=== PATIENT | male | born 1975 | race African-American/Black ===

== ENCOUNTER 2024-01-28 04:12 | Day surgery (SDC) | payer BC ==
[2024-01-26 16:41] VITALS: BMI 27.2
[2024-01-28] MEDS ORDERED: LIDOCAINE HCL 1%, 10 MG/ML (20ML VIAL) ONE (07:27)
[2024-01-28] MEDS ORDERED: BUPIVACAINE HCL/PF 0.5% (5MG/ML) 10 ML VIAL ONE (07:27)
[2024-01-28] MEDS ORDERED: ROCURONIUM BROMIDE 50 MG/5 ML SYRINGE ONE (08:06)
[2024-01-28] MEDS ORDERED: MIDAZOLAM HCL 2 MG/2 ML SINGLE DOSE VIAL ONE (08:06)
[2024-01-28] MEDS ORDERED: PROPOFOL 40 ML ONE (08:06)
[2024-01-28] MEDS ORDERED: LIDOCAINE HCL/PF 2% SDV 5ML VIAL ONE (08:07)
[2024-01-28] MEDS ORDERED: DEXAMETHASONE SOD PHOSPHATE 4 MG/1 ML VIAL ONE (08:29)
[2024-01-28] MEDS: ceFAZolin SODIUM 1 GM VIAL IVPB ONE (08:37)
[2024-01-28] MEDS ORDERED: LIDOCAINE 1%/EPI 1:100000 (20 ML MULTI DOSE VIAL) ONE (08:39)
[2024-01-28] MEDS: LIDOCAINE 1%/EPI 1:100000 (20 ML MULTI DOSE VIAL) IJ ONE ×2 (08:46)
[2024-01-28] MEDS ORDERED: SEVOFLURANE 250 ML BTL ONE (09:16)
[2024-01-28] MEDS ORDERED: ONDANSETRON 4 MG/2 ML VIAL IVPUSH PRN (09:41)
[2024-01-28] MEDS ORDERED: LACTATED RINGERS SOLUTION 1,000 ML IV SCH (09:45)
[2024-01-28 11:47] VITALS: RESP 16
[2024-01-28 11:49] VITALS: TEMP 97.8
[2024-01-28] MEDS ORDERED: oxyCODONE HCL 5 MG TABLET ONE (13:11)
[2024-01-28] MEDS: oxyCODONE HCL 5 MG TABLET PO PRN (13:15)
[2024-01-28 14:09] VITALS: BP 141/70; PULSE 66
== END 2024-01-28 14:40 | disposition home or self-care (01) ==
LOC: JASU-SURG 04:12
PROVIDERS: ATTEND Surgery
PROC: 0YU50JZ Supplement Right Inguinal Region with Synthetic Substitute, Open Approach (ICD-10-PCS; principal; 2024-01-28 08:00)
DX: K40.90 Unilateral inguinal hernia, without obstruction or gangrene, not specified as recurrent (principal)
CPT/HCPCS: 88302-TC; 94760; C1781